=== PATIENT | female | born 1990 | race Caucasian/White ===

== ENCOUNTER 2017-04-13 15:13 | Emergency (ER) | payer MEDICAID ==
[~2017-04-13] VITALS: Ht 152.4 cm; Wt 100.0 kg
[2017-04-13 19:43] LABS: EOSINOPHILS % 1.9 % (0.0-5.0); HEMATOCRIT. 31.6 % (36.0-48.0); HEMOGLOBIN. 10.7 g/dL (12.0-16.0); LYMPHOCYTES % 32.4 % (20.0-50.0); MEAN CORPUSCULAR HEMOGLOBIN 28.6 pg (28.0-32.0); MEAN CORPUSCULAR VOLUME 84.3 fL (81.0-99.0); MEAN PLATELET VOLUME 7.1 fl (7.4-10.4); MONOCYTES % 5.2 % (2.0-8.0); NEUTROPHILS % 59.5 % (40.0-76.0); PLATELET 343 x1000/uL (130-400); RED BLOOD CELL COUNT 3.75 mill/uL (4.2-5.4); RED CELL DISTRIBUTION WIDTH 13.8 % (11.6-14.6)
[2017-04-13 19:47] LABS: CHLORIDE 107 mEq/L (98-107)
[2017-04-13 19:56] LABS: CARBON DIOXIDE 27 mEq/L (21-32)
[2017-04-13 19:58] LABS: B-HCG QUANTITATIVE < 1 mIU/mL (<3)
[2017-04-13 20:14] LABS: CLARITY URINE CLOUDY (CLEAR); COLOR URINE ORANGE (YELLOW); GLUCOSE URINE NEGATIVE (NEGATIVE); KETONES URINE NEGATIVE (NEGATIVE); LEUKOCYTE ESTERASE URINE TRACE (NEGATIVE); NITRITE URINE NEGATIVE (NEGATIVE); OCCULT BLOOD URINE 3+ (NEGATIVE); PH URINE 6.5 (4.5-8.0); PROTEIN URINE TRACE (NEGATIVE); SPECIFIC GRAVITY URINE 1.026 (1.005-1.030)
[2017-04-13 22:22] VITALS: BP 118/70
== END 2017-04-13 22:24 | disposition home or self-care (01) ==
LOC: ER 15:41
DX: N83.202 Unspecified ovarian cyst, left side (principal); D64.9 Anemia, unspecified
CPT/HCPCS: 36415; 76830; 76856; 80053; 81001; 84702; 85025; 99285

== ENCOUNTER 2017-05-24 22:18 | Emergency (ER) | payer MEDICAID | END 2017-05-25 01:14 | disposition left against medical advice (07) | LOC: ER 22:18 | DX: R50.9 Fever, unspecified (principal); R51 Headache; R05 Cough; R06.02 Shortness of breath; Z53.21 Procedure and treatment not carried out due to patient leaving prior to being seen by health care provider ==

== ENCOUNTER 2017-05-27 18:51 | Emergency (ER) | payer MEDICAID ==
[~2017-05-27] VITALS: Ht 152.4 cm; Wt 92.0 kg
[2017-05-27 22:01] LABS: HCG SCREEN NEGATIVE
[2017-05-27 23:35] VITALS: BP 120/80
== END 2017-05-27 23:35 | disposition home or self-care (01) ==
LOC: ER 19:26
DX: R05 Cough (principal)
CPT/HCPCS: 71010; 84703; 93005; 99285